=== PATIENT | female | born 1950 | race Caucasian/White ===

== ENCOUNTER 2023-10-15 19:21 | Emergency (ER) | payer MEDICARE, OTHER, SELFPAY ==
[2023-10-15 19:23] VITALS: BP 146/89
--- NOTE | 2023-10-15 19:58 | ED.GENMED ---
Addendum entered and electronically signed by Augustus Mcdonald PA-C 10/19/23 10:42:
Patient urine culture growing [id number] CFU E.Coli. Arreola sensitive. Patient notes that she passed the stone the next day following her ER visit. She is feeling well and without any urinary symptoms. She is scheduled to go to [facility] today to give a
urine sample. She has followed up with her primary care physician already. Patient defers any antibiotic treatment until her new urinalysis which is being done today
Original Note:
History of Present Illness
<Caty Murphy PA-C - Last Filed: 10/15/23 22:52>
General
Chief Complaint: Abdominal Pain
Source: patient
Exam Limitations: none
Time Seen by Provider: 10/15/23 19:38
Nursing documentation reviewed up to this point in time: agreed with
Travel History
Have you had any contact with someone who has COVID-19?: No
Do you have any symptoms of coronavirus? Fever > 100 degrees, chills, cough, shortness of breath, sore throat, loss of taste or smell, muscle aches, or headache?: No
History of Present Illness
History of Present Illness:
Patient is a 73-year-old female with history diverticulitis, kidney stones presenting for evaluation of acute onset left lower quadrant pain earlier tonight around 630. She describes it as a waxing and waning sharp pain in her left lower quadrant
with associated left lower back pain. Patient does report some nausea but no vomiting. No fever, chills, chest pain, shortness of breath. She denies any dysuria or hematuria.
She does have a history of chronic back pain but states this pain is much more severe.
Past History
<Caty Murphy PA-C - Last Filed: 10/15/23 22:52>
Past History
ED Past Medical History: Hypercholesterolemia and Other (Diverticulitis, Kidney stones)
ED Past Surgical History: None
Social History
Tobacco: Non-smoker
Alcohol: None
Personal: Single (Has boyfriend)
Living: with family
Review of Systems
<Caty Murphy PA-C - Last Filed: 10/15/23 22:52>
Review of Systems
Allergies reviewed?: Yes
All Other Systems: ROS reviewed and negative except as documented in HPI and ROS
Phy Exam
<Caty Murphy PA-C - Last Filed: 10/15/23 22:52>
Physical Exam
Physical Exam:
General: In mild distress due to pain and non-toxic
Vitals: Hypertensive, otherwise vital signs stable, afebrile
HEENT: Atraumatic, normocephalic; pupils equal round reactive to light bilaterally, protecting airway
Neck: appears supple no JVD
CV: Regular rate and rhythm, heart sounds normal no evidence of cyanosis
Resp: No evidence of respiratory distress, lungs clear no accessory muscle use
Abd: Soft, tender in left lower quadrant, non-distended; no CVA tenderness
Extremities: No deformities
Neuro: alert
Psych: Normal affect
Skin: Intact, no rash
Course
<Caty Murphy PA-C - Last Filed: 10/15/23 22:52>
Orders/Labs/Results
Orders:
Orders
10/15/23 20:15
Complete Blood Count/With Diff Urgent
Comprehensive Metabolic Panel Urgent
Lipase Urgent
Urinalysis Reflex To Culture Urgent
Date Specimen was Collected: 10/15/23
Time Specimen was Collected: 20:05
Urine Microscopic Reflex Cult Urgent
Urine Culture Urgent
WILLOW Source: U
Specimen Description:
Date Specimen was Collected: 10/15/23
Time Specimen was Collected: 20:05
10/15/23 20:46
CT Abd/pel Without Iv Or Oral Urgent
Comment: hx kidney stones and diverticulitis
Reason For Exam: LLQ pain with radiation to back
10/15/23 21:01
0.9% Sodium Chloride 1000 ml [Nss] 1,000 ml IV BOLUS
Ketorolac [Toradol] 15 mg IV NOW STA
10/15/23 22:43
HYDROmorphone [Dilaudid] 0.5 mg IV NOW STA
Ondansetron Injectable [Zofran] 4 mg IV NOW STA
10/16/23 00:07
Hydrocodone 5/APAP 325 [[place] 5/325] 1 tablet PO NOW STA
10/16/23 00:14
Tamsulosin [Flomax] 0.4 mg PO NOW STA
Abnormal Lab Results
10/15/23
20:15
RBC 3.77 L 10^6/uL
(4.20-5.40)
Hgb 11.6 L g/dL
(12.0-16.0)
Hct 33.5 L %
(37.0-47.0)
Monocytes % 10.2 H %
(1.7-9.3)
Chloride 108 H mmol/L
(98-107)
BUN 28 H mg/dl
(7-17)
Glucose 104 H mg/dl
(70-99)
Urine Ketones Trace A
(Negative)
Ur Occult Blood Reflex 4+ A
(Negative)
Urine Nitrite (Reflex) Positive A
(Negative)
Leukocyte Esterase Rfl 2+ A
(Negative)
Urine RBC >100 A /HPF
(0-2)
Urine WBC (Reflex) >100 A /HPF
(0-5)
Urine Bacteria (Reflex) Many A
(Negative)
10/15/23 20:15
10/15/23 20:15
Vital Signs
Resp Rate: 14
Initial and Last Documented VS:
Initial Vital Signs
Temp Pulse Resp BP Pulse Ox
36.6 C 78 30 146/89 98
10/15/23 19:23 10/15/23 19:23 10/15/23 19:23 10/15/23 19:23 10/15/23 19:23
Last Documented Vital Signs
Temp Pulse Resp BP Pulse Ox
36.6 C 78 14 146/89 97
10/15/23 19:23 10/15/23 19:23 10/15/23 22:26 10/15/23 19:23 10/15/23 20:05
<Joni Ricks MD - Last Filed: 10/16/23 00:16>
Orders/Labs/Results
Orders:
Orders
10/15/23 20:15
Complete Blood Count/With Diff Urgent
Comprehensive Metabolic Panel Urgent
Lipase Urgent
Urinalysis Reflex To Culture Urgent
Date Specimen was Collected: 10/15/23
Time Specimen was Collected: 20:05
Urine Microscopic Reflex Cult Urgent
Urine Culture Urgent
WILLOW Source: U
Specimen Description:
Date Specimen was Collected: 10/15/23
Time Specimen was Collected: 20:05
10/15/23 20:46
CT Abd/pel Without Iv Or Oral Urgent
Comment: hx kidney stones and diverticulitis
Reason For Exam: LLQ pain with radiation to back
10/15/23 21:01
0.9% Sodium Chloride 1000 ml [Nss] 1,000 ml IV BOLUS
Ketorolac [Toradol] 15 mg IV NOW STA
10/15/23 22:43
HYDROmorphone [Dilaudid] 0.5 mg IV NOW STA
Ondansetron Injectable [Zofran] 4 mg IV NOW STA
10/16/23 00:07
Hydrocodone 5/APAP 325 [[place] 5/325] 1 tablet PO NOW STA
10/16/23 00:14
Tamsulosin [Flomax] 0.4 mg PO NOW STA
Abnormal Lab Results
10/15/23
20:15
RBC 3.77 L 10^6/uL
(4.20-5.40)
Hgb 11.6 L g/dL
(12.0-16.0)
Hct 33.5 L %
(37.0-47.0)
Monocytes % 10.2 H %
(1.7-9.3)
Chloride 108 H mmol/L
(98-107)
BUN 28 H mg/dl
(7-17)
Glucose 104 H mg/dl
(70-99)
Urine Ketones Trace A
(Negative)
Ur Occult Blood Reflex 4+ A
(Negative)
Urine Nitrite (Reflex) Positive A
(Negative)
Leukocyte Esterase Rfl 2+ A
(Negative)
Urine RBC >100 A /HPF
(0-2)
Urine WBC (Reflex) >100 A /HPF
(0-5)
Urine Bacteria (Reflex) Many A
(Negative)
10/15/23 20:15
10/15/23 20:15
Vital Signs
Initial and Last Documented VS:
Initial Vital Signs
Temp Pulse Resp BP Pulse Ox
36.6 C 78 30 146/89 98
10/15/23 19:23 10/15/23 19:23 10/15/23 19:23 10/15/23 19:23 10/15/23 19:23
Last Documented Vital Signs
Temp Pulse Resp BP Pulse Ox
36.6 C 78 14 146/89 97
10/15/23 19:23 10/15/23 19:23 10/15/23 22:26 10/15/23 19:23 10/15/23 20:05
<Caty Murphy PA-C - Last Filed: 10/15/23 22:52>
MDM/Problems Addressed
Differential Diagnosis Includes:
UTI, pyelonephritis, kidney stone, diverticulitis
MDM/Problems Addressed:
The patient is a 73 year old female with hx diverticulitis, nephrolithiasis presenting for evaluation of acute onset LLQ abdominal pain with radiation to lower back about 3 hours ago. She did notice lower back pain earlier today with acute worsening
after dinner. Some associated nausea but no vomiting, fever, diarrhea. Severe pain seems to be waxing and waning in severity. Vital signs stable - respiratory rate of 14 on my assessment. Patient is afebrile. Physcial exam as documented above..
Abdomen soft and tender in LLQ. Will check basic labs, lipase, UA. Will send for CT abdomen. Start IV fluids, Toradol for pain. Will reassess.
CBC without any clinically significant abnormalities. CMP shows prerenal insufficiency with a BUN of 28, normal creatinine. Otherwise no clinically significant abnormalities. Lipase normal. Urinalysis shows signs of infection with many RBC. CT
pending.
CT shows 5 mm obstructing left UPJ stone with mild left hydronephrosis. Given signs infection urine�will discuss disposition with urology. Urology says patient is safe for discharge home with oral antibiotics, Flomax. He believes she should pass
stone without difficulty.
Patient remains in significant pain after toradol. Will give 0.5 Dilaudid and attempt to control pain. If pain well-controlled�plan for discharge home.
Chronic conditions affecting care:
N/A
Acute Exacerbation and/or Progression of Chronic Illness:
N/A
<Caty Murphy PA-C - Last Filed: 10/15/23 22:52>
*Radiology
Radiology exam reviewed: preliminary read by ED provider and radiology read reviewed
*Pulse Oximetry
Patient hypoxic: no
*Roll Clamp Operator Interpretation
Rate: Roll Clamp Operator- N/A
*Critical Care Note
Total Time (30-74mins, 75-104mins- exclusive of procedures): Not Applicable
ED Attending Note
<Caty Murphy PA-C - Last Filed: 10/15/23 22:52>
-
Portions of this chart may have been created with voice recognition software.� Occasional wrong word or��sound alike� substitutions may have occurred due to the inherent limitations of voice recognition software.
<Joni Ricks MD - Last Filed: 10/16/23 00:16>
ED Attending Note
Patient seen and examined by attending physician: Yes
ED Attending Note:
HPI: 73-year-old female presents for evaluation of left flank and lower quadrant abdominal pain. She states onset of symptoms with vague low back pain earlier today and then this evening had abrupt onset of severe pain in the left lower quadrant.
Associate with nausea no vomiting. No fevers or chills. No diarrhea or constipation. No dysuria, hematuria, change in urinary frequency. Denies any other complaints. She has had prior history of kidney stones.
ROS: Positive for flank pain, abdominal pain, nausea; negative for vomiting, diarrhea, constipation, dysuria, hematuria, change in urinary frequency, fevers, chills
Physical exam:
General: Awake, alert, oriented x3; no acute distress
Head: Normocephalic, atraumatic
Eyes: Conjunctiva normal, sclera anicteric
Throat: Airway intact, handling secretions
Neck: Trachea midline, supple without meningismus
Lungs: Breathing comfortably no distress
Heart: Regular rate
Abd: Soft, non distended, minimally tender left lower quadrant
Back: No CVA tenderness
Neuro: No gross deficits
Skin: no rash
Extremities: Warm well-perfused
Differential diagnosis: Nephrolithiasis, pyelonephritis/UTI, diverticulitis; AAA less likely non-smoker female
Medical decision makin-year-old female presents for evaluation of left flank/lower abdominal pain started gradually this morning and then acutely worsened this evening. Vital signs acceptable; respiratory rate of 30 was noted in triage her
respiratory rate is normal at 14 on my assessment. Physical exam as documented. Plan to place an IV check labs including a CBC and a CMP, urinalysis. Will send for CT of the abdomen pelvis. Will treat pain with Toradol. Provide some fluids.
Monitor closely reassess after the above.
CT shows obstructive 5 mm stone at the left UPJ. Fortunately renal function is normal. She has no fever, no leukocytosis; although her urinalysis does have pyuria and bacteria she has no symptoms of infection and she has squamous cells that
suggest this is more likely contaminated sample. Nevertheless PA did discuss case with urology�urology recommended sending urine culture but no need for admission or emergent surgery at this point. Patient's pain is well-controlled here she feels
comfortable discharge will follow-up as an outpatient with her primary and urology. Spoke to her at length about pain control plan and return precautions in detail including all signs of infection.
Chronic conditions affecting care: N/A
Acute exacerbation or progression of chronic illness: N/A
History source: Patient, spouse
Data reviewed: Labs, records
Medications/testing considered: N/A
Social determinants of health: N/A
Discussion with other providers: N/A
Discharge Plan
Departure
Patient Disposition: Home (Routine Discharge)
Date of Disposition: 10/16/23
Time of Disposition: 00:13
Patient with high blood pressure during this ER visit?: Yes
Discharge Problem:
Left nephrolithiasis
Instructions: Kidney Stones (DC)
Prescriptions:
New
hydrocodone-acetaminophen 5-300 mg tablet
1 tab PO BID PRN (Reason: Pain) Qty: 14 0RF
tamsulosin [Flomax] 0.4 mg capsule
0.4 mg PO DAILY Qty: 10 0RF
No Action
atorvastatin 10 MG tablet
5 mg PO DAILY
zonisamide 100 MG capsule
100 mg PO DAILY
ascorbic acid (vitamin C) [Vitamin C] 500 MG tablet
1,000 mg PO DAILY
cholecalciferol (vitamin D3) [Vitamin D3] 1,000 UNIT capsule
1,000 unit PO DAILY
tamsulosin 0.4 MG capsule
0.4 mg PO HS Qty: 5 0RF
Rx Instructions:
This can cause Hypotension so please take at HS
ondansetron 4 MG tablet,disintegrating
4 mg PO Q8HPRN PRN (Reason: Nausea/Vomiting) Qty: 10 0RF
Referrals:
Bob Henderson MD [Active] - Call in 1-3 days for appt
Mary Fox MD [Family Provider] - Call in 1-3 days for appt
Activity Restrictions/Additional Instructions:
Drink plenty of fluids and take Flomax as prescribed once a day until you passed your kidney stone. You should strain your urine to try and catch your stone. You can take Tylenol and Motrin as needed for mild pain�you can take 500 mg - 1000 mg of
Tylenol up to every 6 hours as needed; you can take 400 mg of ibuprofen up to every 6 hours as needed. You were prescribed hydrocodone to take for breakthrough severe pain. Please note that hydrocodone contains 300 mg of Tylenol and so if you take
the hydrocodone please ensure that you do not take Tylenol alongside it.
If you notice any signs of infection including fever, chills, dysuria You should return immediately to the emergency room. If your pain is poorly controlled please return immediately.
Thank you for visiting the Emergency Department at [facility].
1. Please schedule a follow up appointment as directed. Call first thing tomorrow morning to make an appointment.
2. If indicated, please take your medications as instructed and indicated on discharge paperwork.
3. If any of your symptoms do not improve, or persist, or become more severe within 6-12 hours, please return to the emergency department for further care.
4. Please return to the emergency department if you develop a headache, neck pain/stiffness, fever greater than 100.4F, chest pain, shortness of breath, persistent nausea, vomiting, slurred speech, difficulty walking, numbness/tingling, weakness,
signs of infection or any other symptoms that are worrisome to you.
Please call [phone] if you have any questions.
Interventions
Interventions:
*Risk Screen - Suicide Last Done: 10/15/23 19:23
*General Assessment Last Done: 10/15/23 19:23
*Neglect/Abuse Screening Last Done: 10/15/23 20:05
ED- Fall Risk Assessment Last Done: 10/15/23 20:05
*ED COVID-19 Vaccine History Last Done: 10/15/23 19:23
HO-Updsyq-Vufobeeinr Assessment Last Done: 10/15/23 20:05
[2023-10-15 20:05] VITALS: BMI 36.9
[2023-10-15 20:27] LABS: % Basophils 0.5 % (0-2); % Eosinophils 2.8 % (0-6); % Immature Granulocytes 0.3 % (0-0.5); % Lymphocytes 25.5 % (20.5-51.1); % Monocytes 10.2 % (1.7-9.3); % Neutrophils 60.7 % (42.2-75.2); Absolute Eosinophils 0.2 10^3/uL (0-0.7); Absolute Lymphocytes 1.5 10^3/uL (1.2-3.4); Absolute Monocytes 0.6 10^3/uL (0.1-0.6); Absolute Neutrophils 3.5 10^3/uL (1.4-6.5); Hematocrit 33.5 % (37.0-47.0); Hemoglobin 11.6 g/dL (12.0-16.0); Mean Corp Hgb Conc. 34.6 g/dL (33.0-37.0); Mean Corpuscular Hgb 30.8 pg (27.0-31.0); Mean Corpuscular Volume 88.9 fL (81.0-99.0); Mean Platelet Volume 9.3 fL (7.4-10.4); Nucleated Red Blood Cells % 0 %; Platelet Count 286 10^3/uL (130-400); Red Blood Cell Count 3.77 10^6/uL (4.20-5.40); Red Cell Dist. Width 13.9 % (11.5-14.5); Urine Albumin Trace (Neg - Trace); Urine Bilirubin Negative (Negative); Urine Character Very Cloudy (Clear); Urine Color Yellow; Urine Glucose Negative (Negative); Urine Ketone Trace (Negative); Urine Leukocyte 2+ (Negative); Urine Nitrite Positive (Negative); Urine Occult Blood 4+ (Negative); Urine Specific Gravity 1.025 (<1.030); Urine Urobilinogen Negative (Neg - 1+); White Blood Cell Count 5.8 10^3/uL (4.8-10.8)
[2023-10-15 20:33] LABS: Urine Bacteria Many (Negative); Urine Red Blood Cell >100 /HPF (0-2); Urine White Cell >100 /HPF (0-5)
[2023-10-15 20:48] LABS: ALT (SGPT) 25 U/L (0-35); AST (SGOT) 35 U/L (14-36); Albumin 3.8 g/dl (3.5-5.0); Alkaline Phosphatase 76 U/L (38-126); Blood Urea Nitrogen 28 mg/dl (7-17); Calcium 8.7 mg/dl (8.4-10.2); Carbon Dioxide 25 mmol/L (22-30); Chloride 108 mmol/L (98-107); Glucose 104 mg/dl (70-99); Lipase 91 U/L (23-300); Potassium 3.7 mmol/L (3.5-5.1); Sodium 137 mmol/L (135-145); Total Bilirubin 0.4 mg/dl (0.2-1.3); Total Protein 6.4 g/dl (6.3-8.2); eGFR > 60.00
[2023-10-15] MEDS: NSS 1000 IV (21:55)
[2023-10-15] MEDS: TORADOL 15 MG IV (21:55)
[2023-10-15] MEDS: DILAUDID 0.5 MG IV (22:55)
[2023-10-15] MEDS: ZOFRAN 4 MG IV (22:55)
[2023-10-16] MEDS: ZOFRAN 4 MG IV (01:08)
[2023-10-16] MEDS: NORCO 5/325 1 TABLET PO (01:09)
[2023-10-16] MEDS: FLOMAX 0.400000000000000022 MG PO (01:09)
[2023-10-16 01:14] VITALS: BP 133/78
== END 2023-10-16 01:26 | disposition home or self-care (01) ==
LOC: EMR 19:21
PROVIDERS: Physician Assistant; EMERGENCY PHYSICIAN Emergency Medicine; FAMILY PHYSICIAN Family Medicine
DX: N13.6 Pyonephrosis (principal); R03.0 Elevated blood-pressure reading, without diagnosis of hypertension; Z87.442 Personal history of urinary calculi
CPT/HCPCS: 99284; 96374; 96375 ×2; 96361; 96376; 74176; 80053; 81003; 81015; 83690; 85025; 87077; 87086; 87186

== ENCOUNTER 2024-07-27 13:13 | Emergency (ER) | payer MEDICARE, OTHER, SELFPAY ==
[2024-07-27 13:23] VITALS: BP 127/65
--- NOTE | 2024-07-27 14:21 | ED.MUSCINJ ---
HPI-Injury
General
Chief Complaint: Fall
Source: patient
Exam Limitations: none
Time Seen by Provider: 07/27/24 14:08
History of Present Illness-Injury
Initial Injury comments:
73-year-old female not anticoagulated after mechanical fall. She stumbled and fell backwards hitting her head on the pavement. She also complains of right hand pain. No known loss of consciousness. She denies neck pain. She has been ambulate
since the fall. She notes a headache and a bump to the back of her head. No other complaints at this time
Past History
Past History
ED Past Medical History: Hypercholesterolemia and Other (Diverticulitis, Kidney stones)
ED Past Surgical History: None
Social History
Tobacco: Non-smoker
Alcohol: None
Personal: Single (Has boyfriend)
Living: with family
Phy Exam
Physical Exam
Physical Exam:
General: Well-appearing female no acute respiratory distress
HEENT: Normocephalic there is a hematoma to the posterior lateral scalp on the left side. TMs normal pupils equal round reactive to light
Heart: Regular rate and rhythm
Lungs: Clear no wheeze
Extremities: No cyanosis
Musculoskeletal exam: The right hand is with contusion over the thenar eminence. She is tender over the base of the thumb without deformities. 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
Neurologic exam: Alert she is ambulatory normal gait conversing appropriately good strength and sensation to the upper and lower extremities
Injury Course
Orders/Labs/Results
Orders:
Orders
07/27/24 13:27
CT Head W/o Iv Contrast Urgent
Comment:
Reason For Exam: fell hit back of head + woozy and nausea
CR Hand - Right Min 3 Views Urgent
Comment:
Reason For Exam: fell landed on hand
MDM/Problems Addressed
Differential Diagnosis Includes:
Mechanical fall with head strike and right hand pain. Consider hand fracture versus contusion. Check CT of head to evaluate for hematoma versus skull fracture versus intracranial hemorrhage
*Critical Care Note
Total Time (30-74mins, 75-104mins- exclusive of procedures): Not Applicable
Update Note
Update Note:
CT of head reviewed and is negative for acute fracture or hematoma. X-ray hand negative. Suspect contusion. Reassured patient. Stable for discharge
ED Attending Note
-
Portions of this chart may have been created with voice recognition software.� Occasional wrong word or��sound alike� substitutions may have occurred due to the inherent limitations of voice recognition software.
Discharge Plan
Departure
Patient Disposition: Home (Routine Discharge)
Date of Disposition: 07/27/24
Time of Disposition: 15:16
Patient with high blood pressure during this ER visit?: No
Discharge Problem:
Contusion
Instructions: Contusion (DC)
Prescriptions:
No Action
atorvastatin 10 MG tablet
5 mg PO DAILY
zonisamide 100 MG capsule
100 mg PO DAILY
ascorbic acid (vitamin C) [Vitamin C] 500 MG tablet
1,000 mg PO DAILY
cholecalciferol (vitamin D3) [Vitamin D3] 1,000 UNIT capsule
1,000 unit PO DAILY
tamsulosin 0.4 MG capsule
0.4 mg PO HS Qty: 5 0RF
Rx Instructions:
This can cause Hypotension so please take at HS
ondansetron 4 MG tablet,disintegrating
4 mg PO Q8HPRN PRN (Reason: Nausea/Vomiting) Qty: 10 0RF
hydrocodone-acetaminophen 5-300 mg tablet
1 tab PO BID PRN (Reason: Pain) Qty: 14 0RF
tamsulosin [Flomax] 0.4 mg capsule
0.4 mg PO DAILY Qty: 10 0RF
Referrals:
Mary Fox MD [Family Provider] -
Activity Restrictions/Additional Instructions:
Rest. Use Tylenol or ibuprofen for pain. Ice to the sore spots. Return if worse otherwise follow-up with your doctor
Interventions
Interventions:
*Risk Screen - Suicide Last Done: 07/27/24 13:23
*General Assessment Last Done: 07/27/24 14:25
*Neglect/Abuse Screening Last Done: 07/27/24 13:23
ED- Fall Risk Assessment Last Done: 07/27/24 14:25
*ED COVID-19 Vaccine History Last Done: 07/27/24 14:25
ED-Musculoskeletal Assessment Last Done: 07/27/24 14:25
ED- Neurological Assessment Last Done: 07/27/24 14:25
ED-Skin Assessment Last Done: 07/27/24 14:25
Discharge Date and Time
Print Language: GERMAN
== END 2024-07-27 15:27 | disposition home or self-care (01) ==
LOC: EMR 13:13
PROVIDERS: EMERGENCY PHYSICIAN Student in an Organized Health Care Education/Training Program; FAMILY PHYSICIAN Family Medicine
DX: S60.221A Contusion of right hand, initial encounter (principal); S00.03XA Contusion of scalp, initial encounter; W01.0XXA Fall on same level from slipping, tripping and stumbling without subsequent striking against object, initial encounter; M79.641 Pain in right hand
CPT/HCPCS: 99284; 70450; 73130

== ENCOUNTER 2025-07-14 12:08 | Emergency (ER) | payer MEDICARE, OTHER, SELFPAY ==
[2025-07-14 12:13] VITALS: BP 125/73
[2025-07-14 12:50] LABS: Hematocrit 40.7 % (37.0-47.0); Hemoglobin 14.0 g/dL (12.0-16.0); Mean Corp Hgb Conc. 34.4 g/dL (33.0-37.0); Mean Corpuscular Volume 86.6 fL (81.0-99.0); Nucleated Red Blood Cells % 0 %; Platelet Count 266 10^3/uL (130-400); Red Cell Dist. Width 13.0 % (11.5-14.5)
[2025-07-14 13:02] LABS: ALT (SGPT) 30 U/L (0-35); AST (SGOT) 36 U/L (14-36); Albumin 4.5 g/dl (3.5-5.0); Alkaline Phosphatase 81 U/L (38-126); Blood Urea Nitrogen 17 mg/dl (7-17); Calcium 9.4 mg/dl (8.4-10.2); Carbon Dioxide 32 mmol/L (22-30); Chloride 102 mmol/L (98-107); Glucose 98 mg/dl (70-99); Potassium 3.5 mmol/L (3.5-5.1); Sodium 138 mmol/L (135-145); Total Protein 7.3 g/dl (6.3-8.2); eGFR > 60.00
[2025-07-14 13:14] LABS: Troponin I 0.013 ng/ml
[2025-07-14 15:02] VITALS: BP 123/95
[2025-07-14 15:05] VITALS: BMI 34.1
[2025-07-14 15:06] VITALS: BP 125/95
--- NOTE | 2025-07-14 15:23 | ED.GENMED ---
History of Present Illness
General
Chief Complaint: Chest Pain
Source: patient and spouse
Exam Limitations: none
Time Seen by Provider: 07/14/25 15:20
Nursing documentation reviewed up to this point in time: agreed with
History of Present Illness
History of Present Illness:
Note:
CHIEF COMPLAINT(S)
Chest pain and elevated blood pressure.
HISTORY OF PRESENT ILLNESS
The patient is a 74-year-old female who presented to the emergency department with complaints of chest pain and concerns over elevated blood pressure. The patient states that the pain is located on the left side of the chest and occurred while she
was cooking for Thanksgiving. She describes the pain as hurting more with pressure and is tender upon palpation. The patient was worried about the chest pain, particularly because of concurrent high blood pressure readings, with a recent measurement
of 145/73 and currently at 123/95.
During the examination, the patient expressed relief after knowing that the electrocardiogram and blood tests showed normal results.
PLAN
- Conduct a follow-up blood test.
- Proceed with a chest x-ray to rule out rib fractures or other abnormalities.
- Continue to monitor vital signs, specifically blood pressure, and manage as necessary.
- Educate the patient on the significance of both diastolic and systolic measurements in blood pressure.
PHYSICAL EXAM
General: Alert, no acute distress.
Chest: Tenderness to palpation over left chest wall through the sixth rib.
Neurological: Alert and oriented.
Respiratory: Non-labored respirations.
PROBLEM LIST
Acute:
- Chest wall pain, likely musculoskeletal in origin.
- Elevated blood pressure.
DIFFERENTIAL DIAGNOSIS
The Differential Diagnosis includes, in no particular order and is not limited to:
1. Musculoskeletal chest pain (e.g., costochondritis, rib strain)
2. Myocardial infarction
3. Angina pectoris
4. Rib fracture
5. Pneumonia
6. Pulmonary embolism
7. Pleuritis
8. Gastroesophageal reflux disease (GERD)
9. Heart failure
10. Panic attack or anxiety-related symptoms
EKG
My independent EKG interpretation is:
- Time of EKG: Not specified
- Rhythm: Normal sinus rhythm
- Heart rate: 60 beats per minute
- AK interval: Normal
- QRS duration: Normal
- QT interval: Normal
- Ettrick: Normal
- Abnormalities: None observed (including normal ST segments and no ischemia)
Disposition:
SUMMARY OF ENCOUNTER
The patient, a 74-year-old female, presented to the emergency department with left-sided chest pain, likely resulting from a rib strain while lifting and cooking. The pain was tender on palpation over the left chest wall and intensified with
pressure. Electrocardiogram and laboratory analyses didnt indicate acute coronary syndrome (ACS) or pulmonary embolism (PE). Pain is musculoskeletal.
DISPOSITION
Discharge to follow up with primary care.
ASSESSMENT
1. Chest wall pain, likely musculoskeletal in origin, possibly due to a rib strain.
2. Elevated blood pressure.
PLAN
- Conduct follow-up blood tests.
- Proceed with a chest x-ray to rule out rib fractures or other abnormalities.
- Monitor and manage vital signs, specifically blood pressure.
- Educate the patient on both diastolic and systolic blood pressure measurements.
INDEPENDENT REVIEW OF LABS AND INTERPRETATION OF TESTS
My independent EKG interpretation revealed normal sinus rhythm with a heart rate of 60 beats per minute, normal AK interval, QRS duration, QT interval, and axis. There were no abnormalities observed.
PATIENT EDUCATION AND COUNSELING
The patient was educated on the importance of monitoring blood pressure and its systolic/diastolic measurements and reassured about the non-cardiac origin of the chest pain.
FOLLOW-UP INSTRUCTIONS
Please follow up with your primary care provider to schedule a follow-up visit and further evaluation as necessary.
MEDICATION RECONCILIATION
A prescription for pain management (specific medication not mentioned in the transcript) was provided verbally as part of the discharge instructions.
MEDICAL DECISION MAKING
Number and Complexity of Problems Addressed:
Chronic conditions affecting care; likely musculoskeletal chest pain potentially due to a strained rib. Differential diagnosis considered included ACS and PE, which were ruled out after evaluations.
Data:
Category 1
- My independent interpretation of the EKG confirmed no abnormalities related to ACS or PE.
-Risk:
Consideration of Admission/Observation: Escalation of care including admission/observation was considered given the complexity and risk of the patients presenting complaint. However, ultimately I feel the patient is safe for outpatient management
with close follow-up. The work-up was reassuring, revealing no acute life/organ-threatening processes, symptoms were well controlled upon reevaluation, reexamination was reassuring, vitals were stable, and the patient was agreeable with discharge
and reliable for follow-up.
DIAGNOSIS
1. Chest Wall Pain [ICD-10: R07.89]
2. Elevated Blood Pressure [ICD-10: R03.0]
Past History
Past History
ED Past Medical History: Hypercholesterolemia and Other (Diverticulitis, Kidney stones)
ED Past Surgical History: None
Social History
Tobacco: Non-smoker
Alcohol: None
Personal: Single (Has boyfriend)
Living: with family
Phy Exam
Physical Exam
Physical Exam:
.
Scores
Heart Score for Chest Pain Patients
STEMI patient?: No
History: Slightly or Non-Suspicious
ECG: Normal
Age: >/= 65 years
Risk Factors: 1 or 2 Risk Factors
Troponin: </= Normal Limit
Heart Score for Chest Pain Patients: 3
Heart Score Risk: 2.5% MACE over next 6 weeks
Course
Orders/Labs/Results
Orders:
Orders
07/14/25 12:16
Electrocardiogram (*1) Urgent
Reason for Study: Chest Pain
EKG- Treatment ONCE
IV Insert/Care/Rem.- Treatment PRN
07/14/25 12:31
Complete Blood Count/With Diff Urgent
Comprehensive Metabolic Panel Urgent
Troponin I Urgent
07/14/25 15:38
CR Chest - 2 Views Urgent
Comment:
Reason For Exam: left side chest pain
07/14/25 15:42
Troponin I Urgent
Abnormal Lab Results
07/14/25
12:31
WBC 4.0 L 10^3/uL
(4.8-10.8)
Absolute Lymphs (auto) 0.9 L 10^3/uL
(1.2-3.4)
Monocytes % 9.8 H %
(1.7-9.3)
Carbon Dioxide 32 H mmol/L
(22-30)
07/14/25 12:31
07/14/25 12:31
Vital Signs
Initial and Last Documented VS:
Initial Vital Signs
Temp Pulse Resp BP Pulse Ox
98.2 F 64 18 125/73 99
07/14/25 12:13 07/14/25 12:13 07/14/25 12:13 07/14/25 12:13 07/14/25 12:13
Last Documented Vital Signs
Temp Pulse Resp BP Pulse Ox
98.2 F 75 16 125/95 98
07/14/25 12:13 07/14/25 15:45 07/14/25 15:45 07/14/25 15:06 07/14/25 15:26
*Pulse Oximetry
SaO2: 98
Oxygen Mode of Delivery: Room air
Patient hypoxic: no
*Critical Care Note
Total Time (30-74mins, 75-104mins- exclusive of procedures): Not Applicable
ED Attending Note
-
Portions of this chart may have been created with voice recognition software.� Occasional wrong word or��sound alike� substitutions may have occurred due to the inherent limitations of voice recognition software.
Discharge Plan
Departure
Patient Disposition: Home (Routine Discharge)
Date of Disposition: 07/14/25
Time of Disposition: 16:41
Patient with high blood pressure during this ER visit?: Yes
Condition: Good
Discharge Problem:
Strain of chest wall
Instructions: Chest Pain That Is Not Caused by the Heart (DC), Costochondritis (DC), BLOOD PRESSURE
Prescriptions:
No Action
atorvastatin 10 MG tablet
5 mg PO DAILY
zonisamide 100 MG capsule
100 mg PO DAILY
ascorbic acid (vitamin C) [Vitamin C] 500 MG tablet
1,000 mg PO DAILY
cholecalciferol (vitamin D3) [Vitamin D3] 1,000 UNIT capsule
1,000 unit PO DAILY
tamsulosin 0.4 MG capsule
0.4 mg PO HS Qty: 5 0RF
Rx Instructions:
This can cause Hypotension so please take at HS
ondansetron 4 MG tablet,disintegrating
4 mg PO Q8HPRN PRN (Reason: Nausea/Vomiting) Qty: 10 0RF
hydrocodone-acetaminophen 5-300 mg tablet
1 tab PO BID PRN (Reason: Pain) Qty: 14 0RF
tamsulosin [Flomax] 0.4 mg capsule
0.4 mg PO DAILY Qty: 10 0RF
Referrals:
David Simon MD [Family Provider, Internal Medicine] - Call in 1-3 days for appt
Interventions
Interventions:
*Risk Screen - Suicide Last Done: 07/14/25 12:13
*General Assessment Last Done: 07/14/25 12:13
*Neglect/Abuse Screening Last Done: 07/14/25 17:35
*ED- Fall Risk Assessment Last Done: 07/14/25 15:07
*ED COVID-19 Vaccine History Last Done: 07/14/25 15:07
*ED Influenza Vaccine History Last Done: 07/14/25 15:07
*Nursing Disposition Last Done: 07/14/25 17:35
ED- Cardiac Assessment Last Done: 07/14/25 15:06
Discharge Date and Time
Discharge Date/Time: 07/14/25 17:38
Print Language: PALESTINIAN
[2025-07-14 16:26] LABS: Troponin I 0.018 ng/ml
== END 2025-07-14 17:38 | disposition home or self-care (01) ==
LOC: EMR 12:08
PROVIDERS: Emergency Medicine; EMERGENCY PHYSICIAN Emergency Medicine; FAMILY PHYSICIAN Internal Medicine
DX: S29.011A Strain of muscle and tendon of front wall of thorax, initial encounter (principal); Y93.G3 Activity, cooking and baking; R03.0 Elevated blood-pressure reading, without diagnosis of hypertension; E78.00 Pure hypercholesterolemia, unspecified; Z87.442 Personal history of urinary calculi
CPT/HCPCS: 71046; 80053; 84484; 85025; 93005; 99283